=== PATIENT | male | born 1940 | race Caucasian/White ===

== ENCOUNTER 2016-08-02 11:58 | Outpatient (CLI) | payer MEDICARE, OTHER ==
[2012-04-27 09:48] VITALS: BP 125/74
[2016-08-02 12:46] LABS: eGFR (African) > 60; eGFR (Non-African) > 60
== END 2016-08-02 12:00 ==
LOC: LAB 11:58
PROVIDERS: ATTEND Internal Medicine Cardiovascular Disease
DX: E78.00 Pure hypercholesterolemia, unspecified (principal); R73.03 Prediabetes; R73.9 Hyperglycemia, unspecified
CPT/HCPCS: 80053; 80061; 83036

== ENCOUNTER 2017-04-07 10:19 | Day surgery (SDC) | payer MEDICARE, OTHER ==
[2012-04-27 09:48] VITALS: BP 125/74
[~2017-04-07 10:19] MED LIST: LACTATED RINGERS 1,000 ML IV.SOLN IV ONE; PROPOFOL 200 MG/20 ML VIAL IV ONE; SALINE FLUSH 10 ML DISP.SYRIN IVF ONE
--- NOTE | 2017-04-08 11:15 | GI Report ---
REFERRING PHYSICIAN: Dr. Zan Baugh POLYMER CHEMIST: Omar Trinidad MD PROCEDURE MEDICATION: Propofol as per anesthesia. INDICATIONS: Patient is a 77-year-old man who has had a polyp removed 5 years ago. He is referred for a follow up evaluation. His sister has a history of prior cancer. PROCEDURE PERFORMED: Colonoscopy and polypectomy. PROCEDURE: An Olympus video colonoscope was advanced into the rectum. He does have a nonspecific kind of friability in the rectum and sigmoid. Mild diverticular disease in the sigmoid colon. The colonoscope was advanced all the way to the cecum. In the base of the cecum, there was a 3 mm flat polyp removed with a cold snare. The terminal ileum looked normal. On slow withdrawal, the ascending colon and transverse colon with no additional lesions noted. The descending colon and sigmoid with some redundancy, mild diverticular disease, and nonspecific friability. Retroflexion of the rectum shows hemorrhoids. Patient tolerated the procedure well. FINDINGS: A little flat polyp removed in the base of the cecum with a cold snare. RECOMMENDATIONS: 1. Pending the pathology of the polyp, consider re-looking at his colon in 5 years. 2. Increase bulk fiber in the diet. cc: Dr. Zan TAFOYA
== END 2017-04-07 10:20 ==
LOC: OPSURG 10:19
PROVIDERS: ATTEND Internal Medicine Gastroenterology
DX: D12.0 Benign neoplasm of cecum (principal); Z80.0 Family history of malignant neoplasm of digestive organs
CPT/HCPCS: 45385; J2704; J7120; S1016

== ENCOUNTER 2017-08-13 08:14 | Outpatient (CLI) | payer MEDICARE, OTHER ==
[2012-04-27 09:48] VITALS: BP 125/74
[2017-08-13 09:14] LABS: eGFR (African) > 60; eGFR (Non-African) > 60
== END 2017-08-13 08:15 ==
LOC: LAB 08:14
PROVIDERS: ATTEND Family Medicine
DX: E78.00 Pure hypercholesterolemia, unspecified (principal); R73.9 Hyperglycemia, unspecified; E03.9 Hypothyroidism, unspecified; I10 Essential (primary) hypertension; I25.10 Atherosclerotic heart disease of native coronary artery without angina pectoris; E78.4 Other hyperlipidemia
CPT/HCPCS: 36415; 80053; 80061; 83036; 84443

== ENCOUNTER 2018-03-04 16:37 | Emergency (ER) | payer MEDICARE, OTHER ==
[2018-03-04 17:10] VITALS: BP 144/67
--- NOTE | 2018-03-04 17:35 | ED Physician Documentation ---
Upper Respiratory Symptoms - HISTORIAN Historian: patient - HPI Stated Complaint: Fever/cough Chief Complaint: Cough/ Upper Respiratory Additional Information: Patient presents with a 12 hour history of fever and dry cough. Patient states he fell out of the back of a pickup truck while trimming tree limbs. He landed on his right shoulder and the saw landed on this left chest. He had left lateral rib pain and right shoulder pain which have both improved, however, today when his cough started his left lateral rib pain came back. Onset: hours (12), days ago Duration: intermittent episodes Context: denies: recent foreign travel Severity: mild Associated Symptoms: fever, chills, hurts to breathe Worsened by Deep Breath: Yes Further Comments: no - ROS CONST/EYES: denies: weakness CVS/RESP: denies: chest pain, shortness of breath LYMPH: denies: rash GI/: denies: abdominal pain, vomiting, nausea NEURO/PSYCH: denies: dizziness - PAST HX Lung Disease: none PE Risk Factors: none Surgeries/Procedures: none Allergies/Adverse Reactions: Allergies Allergy/AdvReac Type Severity Reaction Status Date / Time No Known Drug Allergies Allergy Verified 03/04/18 17:06 Home Medications: Ambulatory Orders Medication Instructions Recorded Aspirin [Aspirin Ec] 81 mg PO DAILY #90 u2 05/04/12 Niacin 500 mg PO TID #270 u2 05/04/12 Herald-3 Fatty Acids/Fish Oil [Fish 2 each PO DAILY #60 av 05/04/12 Oil 1,000 Mg Capsule] predniSONE [Deltasone] 20 mg PO DIRECTED #9 tablet 03/04/18 - SOCIAL HX Smoking History: non-smoker, chew Alcohol Use: none Drug Use: none - FAMILY HX Family History: none - VITAL SIGNS Vital Signs: Vital Signs Temp Pulse Resp BP Pulse Ox 100.3 F H 88 17 144/67 96 03/04/18 16:40 03/04/18 16:40 03/04/18 16:40 03/04/18 16:40 03/04/18 16:40 - REVIEWED ASSESSMENTS Nursing Assessment Reviewed: Yes Vitals Reviewed: Yes Progress - Results/Orders Results/Orders: Influenza a/b - negative. ED Results Lab/Radiology - Radiology Radiology Impressions: Chest PA and lateral views Clinical history: Trauma Normal heart shadow and mediastinum. Clear lungs without acute infiltrate or pleural effusion. No pneumothorax. Normally appearing bony thorax. Impression: Normal chest. Electronically signed on Mar 04, 2018 5:40:43 PM SEWER LINE REPAIRER by: Zan Hall Right shoulder 3 views Clinical history: Trauma No visible fracture, dislocation or bone destruction. No soft tissue calcifications. Impression: Normal right shoulder. Electronically signed on Mar 04, 2018 5:41:49 PM SEWER LINE REPAIRER by: Zan Hall - Orders Orders: ED Orders Category Date Time Status CHEST 2VIEW [RAD] Stat Exams 03/04/18 Taken SHOULDER 2 VIEWS OR MORE [RAD] Stat Exams 03/04/18 Taken INFLUENZA A&B Stat Lab 03/04/18 17:08 Ordered methylPREDNISolone SOD SUCC [Solu-MEDROL] Med 03/04/18 17:40 Discontinued 125 mg IM NOW ONE methylPREDNISolone SOD SUCC [Solu-MEDROL] Med 03/04/18 17:39 Stop Req 125 mg IVP NOW ONE Upper Respiratory Symptoms - EXAM General Appearance: no acute distress, alert EENT: nml ENT inspection Neck: normal inspection, supple Respiratory: breath sounds nml Abdomen: non-tender, nml bowel sounds CVS: reg rate & rhythm, heart sounds normal Skin: color nml, no rash, warm,dry Extremities: non-tender, normal range of motion, no evidence of injury Neuro/Psych: oriented x3, neuro intact, mood/affect nml Discharge Clincal Impression: Viral upper respiratory illness Prescriptions: predniSONE [Deltasone] 20 mg PO DIRECTED #9 tablet Referrals: Zan Baugh MD [Primary Care Provider] - 2 Days Additional Instructions: 1. Tylenol and/or Ibuprofen as needed for pain/fever. You may take these medications together at the same time for better pain control 2. Take Prednisone as directed. 3. Follow up with PCP within 3 days. 4. Return to ED for new or worsening symptoms. Condition: Stable Disposition: 01 HOME, SELF-CARE Decision to Admit: NO Date of Decison to Admit: 03/04/18 Decision Time: 17:45
[2018-03-04] MEDS ORDERED: methylPREDNISolone SOD SUCC 125 MG/2 ML VIAL IVP ONE (17:39)
[2018-03-04] MEDS ORDERED: methylPREDNISolone SOD SUCC 125 MG/2 ML VIAL IM ONE (17:40)
--- NOTE | 2018-03-04 17:59 | Diagnostic Imaging Report ---
KATE CORTES [facility] [address] [facility] [address] [place] [id number]. [id number] Report Submission Date: Mar 04, 2018 5:41:49 PM INSPECTOR BULLET SLUGS Patient Study Name: RASHIDA SMITH Date: Mar 04, 2018 5:11:38 PM INSPECTOR [employer] Modality Type: DX Gender: M Description: SHOULDER : 42 Institution: [facility] Physician: KATE CORTES Right shoulder 3 views Clinical history: Trauma No visible fracture, dislocation or bone destruction. No soft tissue calcifications. Impression: Normal right shoulder. Electronically signed on Mar 04, 2018 5:41:49 PM INSPECTOR [employer]UGS by: Zan TAFOYA
--- NOTE | 2018-03-04 18:00 | Diagnostic Imaging Report ---
KATE CORTES [facility] [id number] [facility] [address] [place] [address]. [id number] Report Submission Date: Mar 04, 2018 5:40:43 PM INSURANCE AGENTS SUPERVISOR Patient Study Name: RASHIDA SMITH Date: Mar 04, 2018 5:08:22 PM INSURANCE AGENTS SUPERVISOR Modality Type: DX Gender: M Description: CHEST : 42 Institution: [facility] Physician: KATE CORTES Chest PA and lateral views Clinical history: Trauma Normal heart shadow and mediastinum. Clear lungs without acute infiltrate or pleural effusion. No pneumothorax. Normally appearing bony thorax. Impression: Normal chest. Electronically signed on Mar 04, 2018 5:40:43 PM INSURANCE AGENTS SUPERVISOR by: Zan TAFOYA
== END 2018-03-04 18:09 | disposition home or self-care (01) ==
LOC: ED 16:37
DX: J06.9 Acute upper respiratory infection, unspecified (principal); M25.511 Pain in right shoulder; Z72.0 Tobacco use
CPT/HCPCS: 71046; 73030; 87400; 99282; 99284

== ENCOUNTER 2018-06-01 14:41 | Outpatient (CLI) | payer MEDICARE, OTHER ==
[2018-06-01 15:33] LABS: eGFR (Non-African) > 60
== END 2018-06-01 14:43 ==
LOC: LAB 14:41
PROVIDERS: ATTEND Family Medicine
DX: I10 Essential (primary) hypertension (principal)
CPT/HCPCS: 36415; 80053

== ENCOUNTER 2018-08-19 09:07 | Outpatient (CLI) | payer MEDICARE, OTHER ==
[2018-09-01 15:39] LABS: BASOPHILS % 0.5 % (0.0-1.5); HDL 33 mg/dL (>40); NEUTROPHILS # 4.1 # k/uL (1.4-7.7); eGFR (Non-African) > 60
== END 2018-08-19 09:12 | disposition home or self-care (01) ==
LOC: LAB 09:07
PROVIDERS: ATTEND Internal Medicine Cardiovascular Disease
DX: I10 Essential (primary) hypertension (principal); I25.10 Atherosclerotic heart disease of native coronary artery without angina pectoris; E78.49 Other hyperlipidemia
CPT/HCPCS: 36415; 80053; 80061; 85025